=== PATIENT | female | born 1950 | race Caucasian/White ===

== ENCOUNTER 2016-06-26 19:14 | Emergency (ER) | payer MEDICARE, OTHER ==
[~2016-06-26] VITALS: Ht 162.6 cm; Wt 52.2 kg
[2016-06-26 19:14] VITALS: BP 132/76
== END 2016-06-26 20:53 | disposition home or self-care (01) ==
LOC: ER 19:20
DX: S90.122A Contusion of left lesser toe(s) without damage to nail, initial encounter (principal); M79.675 Pain in left toe(s); M79.7 Fibromyalgia; G25.81 Restless legs syndrome; G47.00 Insomnia, unspecified; Z90.710 Acquired absence of both cervix and uterus; Z88.8 Allergy status to other drugs, medicaments and biological substances; W18.30XA Fall on same level, unspecified, initial encounter; Y93.89 Activity, other specified; Y92.89 Other specified places as the place of occurrence of the external cause; Y99.8 Other external cause status
CPT/HCPCS: 73660; 99284; A4606; Z7610

== ENCOUNTER 2016-09-22 10:13 | Emergency (ER) | payer MEDICARE ==
[~2016-09-22] VITALS: Ht 157.5 cm; Wt 54.4 kg
--- NOTE | 2016-09-22 10:13 | NUR ---
ABDOMINAL PAIN AND DIARRHEA SINCE YESTERDAY. PLACED ON MONITOR. GOWNED PT AWAITING MD ORDER.
--- NOTE | 2016-09-22 10:20 | NUR ---
LAC #20 IV ACCESS. BLOOD SAMPLE COLLECTED SENT TO LAB
[2016-09-22] MEDS ORDERED: FAMOTIDINE/PF INJ 20 MG/2 ML VIAL IV ONE ×2 (10:30→10:37)
[2016-09-22] MEDS ORDERED: IV NS 0.9% 1,000 ML BAG IV ONE (10:30)
[2016-09-22] MEDS ORDERED: DIAZEPAM 5 MG/ML 2 ML DISP.SYRIN IV ONE (10:30)
[2016-09-22] MEDS ORDERED: ONDANSETRON HCL/PF 4 MG/2 ML VIAL IVP ONE (10:30)
[2016-09-22] MEDS ORDERED: MORPHINE SULFATE INJ 2 MG/ML DISP.SYRIN IV ONE (10:30)
[2016-09-22] MEDS ORDERED: MORPHINE SULFATE INJ 4 MG/ML DISP.SYRIN ONE (10:36)
[2016-09-22] MEDS ORDERED: ONDANSETRON HCL/PF 4 MG/2 ML VIAL ONE (10:36)
--- NOTE | 2016-09-22 10:38 | NUR ---
EKG IN PROGRESS
[2016-09-22 10:41] LABS: APPEARANCE,URINE Clear (CLEAR); BILIRUBIN,URINE Negative (NEGATIVE); BLOOD, URINE Trace-intact Ery/uL (NEGATIVE); COLOR,URINE Yellow (YELLOW); KETONES,URINE Negative (NEGATIVE); LEUKOCYTE ESTERASE ,URINE Small (NEGATIVE); NITRITE, URINE Negative (NEGATIVE); PROTEIN,URINE Negative (NEGATIVE); UGLUCOSE Negative (NEGATIVE); UROBILINOGEN,URINE 0.2 EU/dL (0.2)
[2016-09-22 10:42] LABS: BASOPHILS # (AUTO) 0.1 /CMM (0.0-0.2); BASOPHILS % (AUTO) 1.2 % (0.0-2.0); EOSINOPHILS # (AUTO) 0.1 /CMM (0.0-0.7); EOSINOPHILS % (AUTO) 0.9 % (0.0-6.0); HEMATOCRIT 45 % (33-45); HEMOGLOBIN 14.6 g/dL (11.5-14.8); LYMPHOCYTES # (AUTO) 2.7 /CMM (0.8-4.8); LYMPHOCYTES % (AUTO) 41.7 % (20.0-44.0); MEAN CORPUSCULAR HEMOGLOBIN 30 PG (26.0-33.0); MEAN CORPUSCULAR HGB CONC 33 g/dl (31.0-36.0); MEAN CORPUSCULAR VOLUME 93 fL (82-100); MONOCYTES # (AUTO) 0.4 /CMM (0.1-1.30); NEUTROPHILS # (AUTO) 3.2 /CMM (1.8-8.9); NEUTROPHILS % (AUTO) 50.2 % (43.0-81.0); PLATELET COUNT (AUTO) 430 /CMM (150-450); RDW COEFFICIENT OF VARIATION 12.8 (11.5-15.0); RED BLOOD CELL COUNT(AUTO) 4.83 MIL/uL (4.0-5.2); WHITE BLOOD COUNT (AUTO) 6.5 K/uL (4.3-11.0)
--- NOTE | 2016-09-22 10:47 | NUR ---
PT TAKEN TO CT VIA MAINE
[2016-09-22 10:53] LABS: BACTERIA,URINE Moderate /HPF (None Seen); RBC,URINE 0-2 /HPF (0-2); SQUAMOUS EPITHELIAL CELL,UR Few /HPF (None Seen)
[2016-09-22 10:55] LABS: CALCIUM, SERUM 8.6 mg/dL (8.5-10.1); CARBON DIOXIDE 27 mmol/L (21-32); CHLORIDE 108 mmol/L (98-107); CREATININE 0.7 mg/dL (0.6-1.3); GLUCOSE 97 mg/dL (74-106); POTASSIUM 4.3 mmol/L (3.5-5.1); SODIUM SERUM 143 mmol/L (136-145); UREA NITROGEN, BLOOD 12 mg/dL (7-18)
[2016-09-22 11:00] LABS: ALANINE AMINOTRANSFERASE 21 U/L (12-78); ALBUMIN 4.3 g/dL (3.4-5.0); ALKALINE PHOSPHATASE 118 U/L (46-116); ASPARTATE AMINOTRANSFERASE 20 U/L (15-37); BILIRUBIN,DIRECT 0.1 mg/dL (0.0-0.2); BILIRUBIN,TOTAL 0.4 mg/dL (0.2-1.0); LIPASE 135 U/L (73-393); TOTAL PROTEIN, SERUM 7.7 g/dL (6.4-8.2)
[2016-09-22] MEDS ORDERED: LORAZEPAM INJ 2 MG/ML VIAL IV ONE (11:00)
[2016-09-22 11:02] LABS: TROPONIN I < 0.017 ng/mL (0.00-0.056)
[2016-09-22 12:32] VITALS: BP 120/62
--- NOTE | 2016-09-22 12:34 | NUR ---
Patient discharged to home in stable condition. Written and verbal after care instructions given. Patient verbalizes understanding of instruction.IV removed. Catheter intact and site benign. Pressure and 4x4 applied to site. No bleeding noted. ambulatory with steady gait. no further complaints.
== END 2016-09-22 12:34 | disposition home or self-care (01) ==
LOC: ER 10:14
DX: N20.0 Calculus of kidney (principal); G25.81 Restless legs syndrome; G89.29 Other chronic pain; M79.7 Fibromyalgia; Z88.0 Allergy status to penicillin
CPT/HCPCS: 36415; 71010-TC; 72128-TC; 80048-TC; 80076-TC; 81000-TC; 83690-TC; 84484-TC; 85025-TC; 87086-TC; 87186-TC; A4606; J2270; J2405; J3360; J3490; J7030; Z7610

== ENCOUNTER 2016-10-05 13:28 | Emergency (ER) | payer MEDICARE ==
[~2016-10-05] VITALS: Ht 157.5 cm; Wt 47.6 kg
[2016-10-05 13:49] VITALS: BP 107/71
[2016-10-05] MEDS ORDERED: predniSONE 20 MG TABLET ONE (14:14)
[2016-10-05] MEDS ORDERED: predniSONE 20 MG TABLET PO ONE (14:30)
== END 2016-10-05 14:20 | disposition home or self-care (01) ==
LOC: ER 13:29
DX: B02.9 Zoster without complications (principal); G40.909 Epilepsy, unspecified, not intractable, without status epilepticus; G47.00 Insomnia, unspecified; M79.7 Fibromyalgia; G25.81 Restless legs syndrome; Z88.1 Allergy status to other antibiotic agents; Z88.8 Allergy status to other drugs, medicaments and biological substances; Z90.710 Acquired absence of both cervix and uterus
CPT/HCPCS: 99283; A4606; J7512; Z7610

== ENCOUNTER 2020-04-03 10:27 | Outpatient (CLI) | payer MEDICARE, MEDICAID | END 2020-04-03 23:59 | disposition home or self-care (01) | LOC: MSC 10:27 | PROVIDERS: ATTEND Internal Medicine | DX: K57.92 Diverticulitis of intestine, part unspecified, without perforation or abscess without bleeding (principal); K65.9 Peritonitis, unspecified; G62.9 Polyneuropathy, unspecified; M19.90 Unspecified osteoarthritis, unspecified site; Z88.1 Allergy status to other antibiotic agents; Z88.0 Allergy status to penicillin; Z88.8 Allergy status to other drugs, medicaments and biological substances ==

== ENCOUNTER 2020-04-05 08:18 | Outpatient (CLI) | payer MEDICARE, MEDICAID ==
[2020-04-05 08:54] LABS: ALBUMIN 3.9 g/dL (3.4-5.0); BILIRUBIN,TOTAL 0.5 mg/dL (0.2-1.0); CALCIUM, SERUM 8.7 mg/dL (8.5-10.1); CREATININE 0.8 mg/dL (0.6-1.3); POTASSIUM 3.6 mmol/L (3.5-5.1); TOTAL PROTEIN, SERUM 7.2 g/dL (6.4-8.2)
[2020-04-05 09:02] LABS: BASOPHILS % (AUTO) 0.2 % (0.0-2.0); EOSINOPHILS % (AUTO) 1.1 % (0.0-6.0); HEMATOCRIT 44 % (33-45); HEMOGLOBIN 14.4 g/dL (11.5-14.8); LYMPHOCYTES # (AUTO) 1.7 /CMM (0.8-4.8); LYMPHOCYTES % (AUTO) 39.8 % (20.0-44.0); MEAN CORPUSCULAR HGB CONC 33 g/dl (31.0-36.0); MEAN CORPUSCULAR VOLUME 94 fL (82-100); MONOCYTES # (AUTO) 0.5 /CMM (0.1-1.30); NEUTROPHILS # (AUTO) 2.1 /CMM (1.8-8.9); NEUTROPHILS % (AUTO) 47.9 % (43.0-81.0); PLATELET COUNT (AUTO) 351 /CMM (150-450); RED BLOOD CELL COUNT(AUTO) 4.66 MIL/uL (4.0-5.2); WHITE BLOOD COUNT (AUTO) 4.3 K/uL (4.3-11.0)
== END 2020-04-05 23:59 | disposition home or self-care (01) ==
LOC: LAB 08:18
PROVIDERS: ATTEND Internal Medicine
DX: Z00.00 Encounter for general adult medical examination without abnormal findings (principal)
CPT/HCPCS: 36415; 80053-TC; 85025-TC

== ENCOUNTER 2020-04-06 10:17 | Outpatient (CLI) | payer MEDICARE, MEDICAID ==
[2020-04-06] MEDS ORDERED: DIATR MEGLU/DIATRIZOATE SODIUM 30 ML BOTTLE (GASTROGRAPHIN) ONE (10:38)
[2020-04-06] MEDS ORDERED: IOHEXOL-300 100 ML VIAL IV ONE (12:30)
[2020-04-06] MEDS ORDERED: CT SWABBABLE VALVE TRANS SET 1 EA INFUS.SET MC ONE (12:31)
[2020-04-06] MEDS ORDERED: IV NS 0.9% 250 ML IV ONE (12:31)
== END 2020-04-06 23:59 | disposition home or self-care (01) ==
LOC: CT 10:17
PROVIDERS: ATTEND Internal Medicine
DX: K57.30 Diverticulosis of large intestine without perforation or abscess without bleeding (principal); K57.10 Diverticulosis of small intestine without perforation or abscess without bleeding; K80.20 Calculus of gallbladder without cholecystitis without obstruction; N28.89 Other specified disorders of kidney and ureter; I70.0 Atherosclerosis of aorta
CPT/HCPCS: 74177; J7050; Q9963; Q9967

== ENCOUNTER 2020-04-11 14:47 | Outpatient (CLI) | payer MEDICARE, MEDICAID | END 2020-04-11 23:59 | disposition home or self-care (01) | LOC: MSC 14:47 | PROVIDERS: ATTEND Internal Medicine | DX: Z09 Encounter for follow-up examination after completed treatment for conditions other than malignant neoplasm (principal); K57.92 Diverticulitis of intestine, part unspecified, without perforation or abscess without bleeding; K65.9 Peritonitis, unspecified; G62.9 Polyneuropathy, unspecified; M19.90 Unspecified osteoarthritis, unspecified site ==

== ENCOUNTER 2020-09-27 14:42 | Emergency (ER) | payer OTHER ==
[~2020-09-27] VITALS: Ht 157.5 cm; Wt 49.9 kg
[~2020-09-27 14:42] MED LIST: CARI350T PO
--- NOTE | 2020-09-27 14:55 | NUR ---
THE PATIENT BIBS FOR C/O R BUTTOCK AREA PAIN/BRUISING S/P GLF 2 DAYS AGO. RATES PAIN 5/10. NO APPARENT DEFORMITY NOTED. WILL CONTINUE TO MONITOR THE PATIENT
--- NOTE | 2020-09-27 14:57 | NUR ---
DR NEIL AT THE BEDSIDE
[2020-09-27 14:58] VITALS: BP 122/87
--- NOTE | 2020-09-27 15:48 | NUR ---
Patient discharged to home in stable condition. Written and verbal after care instructions given. Patient verbalizes understanding of instruction.
== END 2020-09-27 15:48 | disposition home or self-care (01) ==
LOC: ER 14:42
DX: S70.01XA Contusion of right hip, initial encounter (principal); M79.7 Fibromyalgia; G47.00 Insomnia, unspecified; Z98.890 Other specified postprocedural states; Z88.8 Allergy status to other drugs, medicaments and biological substances; Z88.1 Allergy status to other antibiotic agents; Z79.899 Other long term (current) drug therapy; W18.39XA Other fall on same level, initial encounter; Y93.89 Activity, other specified; Y92.89 Other specified places as the place of occurrence of the external cause; Y99.8 Other external cause status
CPT/HCPCS: 72100-TC; 72170-TC